=== PATIENT | male | born 1940 | race Caucasian/White ===

== ENCOUNTER → 2019-03-04 | Outpatient (CLI) | payer MEDICARE ==
--- NOTE | 2019-03-05 11:57 | PCVCIMAG ---
APPROVED REPORT Study performed: 03/04/2019 13:51:28 EXAM: Comprehensive 2D, Doppler, and color-flow Echocardiogram Patient Location: Echo lab Room #: 3Status: routine BSA: 2.24 HR: 48 bpmBP: 132/84 mmHg Rhythm: Bradycardia Other Information Study Quality: Good Risk Factors: Cardiac Risk Factors: HTN Indications Murmur Bradycardia Hypertension/HDD 2D Dimensions IVSd: 10.44 (7-11mm)LVOT Diam: 25.75 (18-24mm) LVDd: 59.18 mm PWd: 9.06 (7-11mm)Ascending Ao: 43.92 (22-36mm) LVDs: 32.63 (25-40mm) Left Atrium: 38.30 (27-40mm) Aortic Root: 35.80 mm LV Single Plane 4CH: 57.45 % LV Single Plane 2CH: 54.16 % Biplane EF: 57.0 % Volumes Left Atrial Volume (Systole) Single Plane 4CH: 78.62 mLSingle Plane 2CH: 76.53 mL Biplane LA Volume: 80.00 mLLA ESV Index: 36.00 mL/m2 Aortic Valve AoV Peak Alejandro.: 1.99 m/s AO Peak Gr.: 15.61 mmHgLVOT Max P.87 mmHg AO Mean Gr.: 8.45 mmHg AO V2 Mean: 1.33 m/sLVOT Max V: 1.21 m/s AO V2 VTI: 40.98 cm RAUL Vmax: 3.17 cm2 AI Vmax: 5.84 m/s AI [place]: 2.09 m/s2 AI PHT: 809.22 ms Mitral Valve E/A Ratio: 0.7 MV Decel. Time: 293.99 ms MV E Max Alejandro.: 0.48 m/s MV A Alejandro.: 0.66 m/s IVRT: 121.11 ms TDI E/Lateral E': 5.33E/Medial E': 8.00 Medial E' Alejandro.: 0.06 m/s Lateral E' Alejandro.: 0.09 m/s Pulmonary Valve PV Peak Alejandro.: 1.17 m/sPV Peak Gr.: 5.52 mmHg Pulmonary Vein P Vein S: 0.51 m/sP Vein A: 0.31 m/s P Vein D: 0.42 m/sP Vein A Dur.: 117.6 msec P Vein S/D Ratio: 1.21 Tricuspid Valve TR Peak Alejandro.: 2.42 m/s TR Peak Gr.: 23.47 mmHg TV Vmax: 0.63 m/sPA Pressure: 30.00 mmHg Left Ventricle The left ventricle is normal size. There is normal LV segmental wall motion. There is normal left ventricular wall thickness. Left ventricular systolic function is normal. The left ventricular ejection fraction is within the normal range. LVEF is 55-60%. Grade I - abnormal relaxation pattern. Right Ventricle The right ventricle is normal size. The right ventricular systolic function is normal. Atria Left atrium is mildly dilated. The right atrium size is normal. Aortic Valve Aortic valve is trileaflet. Aortic valve leaflets are sclerotic with mildly decreased leaflet excursion. Mild aortic regurgitation. Peak aortic valve gradient is _16 mmHg. Highest mean aortic valve gradient is 8.5_mmHg. Calculated RAUL by the continuity equation is 3.1_cm2. Mildly increased velocity across the valve without stenosis. Mitral Valve The mitral valve is normal in structure. Trace mitral regurgitation. No evidence of mitral valve stenosis. Tricuspid Valve The tricuspid valve is normal in structure. Mild tricuspid regurgitation with a PA pressure of 30 mmHg. Mild pulmonary hypertension. Pulmonic Valve The pulmonary valve is normal in structure. There is no pulmonic valvular regurgitation. Great Vessels The aortic root is normal in size. IVC is normal in size and collapses >50% with inspiration. Pericardium There is no pericardial effusion. <Conclusion> The left ventricle is normal size. LVEF is 55-60%. Left atrium is mildly dilated. Aortic valve is trileaflet. Aortic valve leaflets are sclerotic with mildly decreased leaflet excursion. Mild aortic regurgitation. Peak aortic valve gradient is _16 mmHg. Highest mean aortic valve gradient is 8.5_mmHg. Calculated RAUL by the continuity equation is 3.1_cm2. Mildly increased velocity across the valve without stenosis. The mitral valve is normal in structure. Trace mitral regurgitation. The tricuspid valve is normal in structure. Mild tricuspid regurgitation with a PA pressure of 30 mmHg. Mild pulmonary hypertension. The pulmonary valve is normal in structure. There is no pericardial effusion.
== END | disposition home or self-care (01) ==
LOC: PCVCIMAG 13:40
PROVIDERS: ATTEND Internal Medicine
DX: I08.2 Rheumatic disorders of both aortic and tricuspid valves (principal); I47.1 Supraventricular tachycardia; I27.20 Pulmonary hypertension, unspecified; I12.9 Hypertensive chronic kidney disease with stage 1 through stage 4 chronic kidney disease, or unspecified chronic kidney disease; N18.3 Chronic kidney disease, stage 3 (moderate); Z87.891 Personal history of nicotine dependence; Z79.82 Long term (current) use of aspirin; Z79.899 Other long term (current) drug therapy; Z85.46 Personal history of malignant neoplasm of prostate
CPT/HCPCS: 93306; G0463